=== PATIENT | female | born 1995 | race Caucasian/White ===

== ENCOUNTER 2019-10-31 10:12 | Emergency (ER) | payer BC, SELFPAY ==
[2019-10-31 10:16] VITALS: BP 133/83; PULSE 85; RESP 15; TEMP 36.6; O2SAT 99
--- NOTE | 2019-10-31 10:28 | ED.GENADULT ---
HPI - General Adult General Chief complaint: Unspecified Stated complaint: dirty needle stick Time Seen by Provider: 10/31/19 10:15 Source: patient Mode of arrival: ambulatory Limitations: no limitations History of Present Illness HPI narrative: This is a 24 year old female that presents to the ER for needlestick injury that happened just prior to arrival. 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 Reports a fingerstick to the left 4th finger. Reports she washed the area thoroughly with soap and water and came here for evaluation. Reports the patient was not known to have HIV or Hepatitis or have any risk factors. She is up to date on her vaccinations. Denies bleeding. Related Data Home Medications Medication Instructions Recorded Confirmed norethindrone-e.estradiol-iron 1 tablet PO DAILY 10/31/19 [] sertraline [Zoloft] 50 mg PO DAILY 10/31/19 Allergies Allergy/AdvReac Type Severity Reaction Status Date / Time No Known Allergies Allergy Verified 10/31/19 10:20 Review of Systems Review of Systems: Narrative: CONSTITUTIONAL: Denies fever SKIN: Reports needlestick injury All systems reviewed & are unremarkable except as noted in HPI and below PMFSH Past Medical History Medical History (Updated 10/31/19 @ 12:42 by Pau Prescott PA-C) History of anxiety Social History Social History (Updated 10/31/19 @ 10:28 by Pau Prescott PA-C) Smoking status: Never smoker Gender identity (if verbalized by the patient): Female Exam Narrative: Exam Narrative: GENERAL: Well-appearing, well-nourished, and in no acute distress. HEAD: Normocephalic, atraumatic. EYES: EOMI. EXTREMITIES: Normal range of motion. No edema. Left 4th finger with superficial puncture wound noted, no active bleeding SKIN: Warm, dry, no rash. NEURO: No focal deficits. Alert and oriented x3. PSYCH: Normal mood and affect Course Vital Signs Vital signs: Vital Signs Temperature 97.8 F 10/31/19 10:16 Pulse Rate 85 10/31/19 10:16 Respiratory Rate 15 10/31/19 10:16 Blood Pressure 133/83 10/31/19 10:16 Pulse Oximetry 99 10/31/19 10:16 Temperature 97.8 F 10/31/19 10:16 Pulse Rate 85 10/31/19 10:16 Respiratory Rate 15 10/31/19 10:16 Blood Pressure 133/83 10/31/19 10:16 Pulse Oximetry 99 10/31/19 10:16 Medical Decision Making MDM Narrative Medical decision making narrative: Patient presents to the emergency department for needlestick injury today. Superficial injury to the finger. The patient was not known to have hepatitis or HIV or any risk factors for this. Her needlestick profile today is negative. She is up-to-date on her vaccinations. She was instructed to follow-up with her primary for repeat testing. Patient was given warnings to return to the ER Vital Signs Vital Signs: Vital Signs Temperature 97.8 F 10/31/19 10:16 Pulse Rate 85 10/31/19 10:16 Respiratory Rate 15 10/31/19 10:16 Blood Pressure 133/83 10/31/19 10:16 Pulse Oximetry 99 10/31/19 10:16 Temperature 97.8 F 10/31/19 10:16 Pulse Rate 85 10/31/19 10:16 Respiratory Rate 15 10/31/19 10:16 Blood Pressure 133/83 10/31/19 10:16 Pulse Oximetry 99 10/31/19 10:16 Lab Data Lab results reviewed: Yes I reviewed the patient's lab results. Labs: Lab Results 10/31/19 Range/Units 10:43 Hep Bs Antigen Negative (Negative) Hepatitis C Ab Screen Negative (Negative) HIV 1&2 Ab/P24 Ag 4thGn Negative (Negative) Critical Care Time Critical Care Time Critical Care Time: No Discharge Plan Discharge Clinical Impression: Needlestick injury accident Patient Disposition: Home, Self-Care Condition: Stable Instructions: Puncture Wound (ED) Additional Instructions: Return to the emergency department if you experience fever, redness and swelling of your wound, or any other symptoms that are concerning to you Follow-up with
[2019-10-31 11:43] LABS: Hepatitis B Surface Antigen Negative (Negative)
[2019-10-31 12:00] LABS: HIV 1/2 Ab P24 Ag Result Negative (Negative); Hepatitis C Virus Antibody Negative (Negative)
== END 2019-10-31 13:14 | disposition home or self-care (01) ==
PROVIDERS: Physician Assistant; Emergency Provider Emergency Medicine
DX: S61.235A Puncture wound without foreign body of left ring finger without damage to nail, initial encounter (principal); F41.9 Anxiety disorder, unspecified; W46.1XXA Contact with contaminated hypodermic needle, initial encounter
CPT/HCPCS: 36415; 86703; 86803; 87340; 99283; G0432